=== PATIENT | female | born 1940 | race Caucasian/White ===

== ENCOUNTER 2021-07-27 10:28 | Observation (INO) | payer MEDICARE, OTHER, SELFPAY ==
[2021-07-26 10:06] VITALS: BMI 24.7
[2021-07-27] VITALS (15 sets, daily range): BP systolic 98–136; BP diastolic 56–84; PULSE 57–75; RESP 11–17; TEMP 36.1–36.6; O2SAT 90–97; BMI 24.7
--- NOTE | 2021-07-27 06:38 | P.ANESASSM_ITS ---
Pre-Anesthetic Assessment Height/Weight: Height 1.6 m Weight 63.503 kg Preop Diagnosis: uterine prolapse, cystocele Operation Date: 07/27/21 07:00 Proposed Procedures p LAV with BSO [id number]/n81.4(Not Applicable) - Christal Samuel MD s Laparoscopic Salpingo Oophorectomy(Bilateral) - MD malena Goel Anterior Repair(Not Applicable) - Christal Samuel MD s possible mid-urethral sling(Not Applicable) - Christal Samuel MD Familial anesthetic complications: None Was Beta Marlena taken within 24 hours: Yes Was Clonidine taken within 24 hours: N/A Last intake: > 8hrs Social No alcohol and No tobacco Exam alert, oriented x 3, clear to auscultation bilaterally and regular rate & rhythm Airway Mallampati: Class I Dentition: false CV/HEM Coronary Artery Disease (stent several years ago) and Hypertension GI Gastroesophageal Reflux Disease Musc/skel Lower Back Pain Anesthetic Plan ASA status: 2 Anesthesia: General Risk of > 500 ml blood loss (7ml/kg in children): No Medications/Allergies Home Medications Medication Instructions Recorded Confirmed Last Taken Type alprazolam 0.5 mg disintegrating 0.5 mg PO BEDTIME 07/02/21 07/27/21 07/26/21 History tablet brimonidine 0.2 % eye drops 1 drp OPHTHALMIC (EYE) BID 07/02/21 07/27/21 07/27/21 History calcium carbonate 600 mg calcium 600 mg PO BID 07/02/21 07/27/21 07/26/21 History (1,500 mg) tablet (Calcium) gemfibrozil 600 mg tablet 600 mg PO BID 07/02/21 07/27/21 07/26/21 History lisinopril 10 mg tablet 10 mg PO BEDTIME 07/02/21 07/27/21 07/26/21 History metoprolol succinate 50 mg 50 mg PO DAILY 07/02/21 07/27/21 07/27/21 History tablet,extended release 24 hr omeprazole 20 mg capsule,delayed 20 mg PO BID 07/02/21 07/27/21 07/26/21 History release fluticasone propionate 50 2 spray INTRANASAL DAILY PRN 07/21/21 07/27/21 07/24/21 History mcg/actuation nasal spray,suspension (Flonase Allergy Relief) Allergies Allergy/AdvReac Type Severity Reaction Status Date / Time No Known Allergies Allergy Verified 07/26/21 09:52 [facility] Anesthesia Medical History No pertinent past medical history neghx: dm, htn, thyroid, dvt/pe PCP: Janell Mendes Surgical History History of back surgery (~2001) with madyson History of heart artery stent Hx of breast biopsy L breast Hx of removal of cyst R wrist Family History (Updated 07/21/21 @ 15:05 by Amalia Young RN) Brother Heart disease Stroke Denies family history of Colon cancer Ovarian cancer Diabetes Hyperlipidemia Breast cancer Hypertension Uterine cancer Thyroid condition Data Anesthesia Cardiac Studies: No Data to Display
[2021-07-27] MEDS: CELEcoxib 200 mg Capsule 400 MG PO (06:41)
[2021-07-27] MEDS: phenazopyridine 100 mg Tablet 200 MG PO (06:41)
[2021-07-27] MEDS: scopolamine 1.5 Patch 1 PATCH TRANSDERMA (06:44)
[2021-07-27] MEDS: ketorolac 30 mg/mL INJ IVP ×3 (06:44→19:53)
[2021-07-27] MEDS: gabapentin 300 mg Capsule PO (06:44)
[2021-07-27] MEDS: sodium chloride 0.9% 1,000 ML 30 ML IV (06:45)
[2021-07-27] MEDS: acetaminophen 1,000 MG/100 ML PIGGYBACK 400 MG IV (06:46)
[2021-07-27 07:03] LABS: Basophils % 0.8 %; Eosinophils # 0.2 10^3/uL (0.0-0.8); Eosinophils % 3.6 %; Hematocrit 38.3 % (37.0-47.0); Hemoglobin 13.1 g/dL (11.5-15.3); Lymphocytes # 2.1 10^3/uL (0.8-4.8); Lymphocytes % 43.5 %; Mean Corpuscular HGB Conc 34.2 g/dL (30.0-36.0); Mean Corpuscular Hemoglobin 31.8 pg (28.0-34.0); Mean Platelet Volume 9.4 fL (7.4-10.4); Monocytes # 0.5 10^3/uL (0.2-0.9); Monocytes % 11.3 %; Neutrophils # 1.92 10^3/uL (1.8-7.7); Neutrophils % 40.8 %; Nucleated Red Blood Cells % 0 %; Platelet Count 310 10^3/cmm (130-400); Red Blood Count 4.12 10^6/uL (4.1-5.3); White Blood Count 4.7 10^3/uL (4.0-10.0)
--- NOTE | 2021-07-27 07:06 | W.PM.OPSUD ---
Surgery/Procedure H&P Update DATE OF PROCEDURE: July 27, 2021 DATE H&P PERFORMED: 07/21/21 H&P UPDATE INFORMATION: I have reviewed H&P completed within last 30 days, I have examined patient prior to procedure and No changes to prior documentation PREOP DIAGNOSIS: uterine prolapse, cystocele PLANNED PROCEDURE: Operation Date: 07/27/21 07:00 Proposed Procedures p LAVH with BSO [id number]/n81.4(Not Applicable) - Christal Samuel MD s Laparoscopic Salpingo Oophorectomy(Bilateral) - Christal Samuel MD s Anterior Repair(Not Applicable) - Christal Samuel MD s possible mid-urethral sling(Not Applicable) - Christal Samuel MD Related Problem List Diagnoses (1) Cystocele: (2) Uterine prolapse:
[2021-07-27 07:16] LABS: Anion Gap 15.4 (5-19); Blood Urea Nitrogen 17 mg/dL (8-23); Carbon Dioxide 24 mmol/L (22-29); Chloride 103 mmol/L (98-107); Glucose 114 mg/dL (65-115); Osmolality Calculated 288 mOsm/kg (285-295); Potassium 4.4 mmol/L (3.5-5.1); Sodium 138 mmol/L (136-145)
--- NOTE | 2021-07-27 08:03 | SUR.OPER ---
family updated of surgical status
[2021-07-27] MEDS: vasopressin 20 unit/mL INJ INJECTION (08:10)
--- NOTE | 2021-07-27 09:09 | SUR.OPER ---
family updated of surgical status
--- NOTE | 2021-07-27 10:14 | PM.OP ---
Operative Report Date of procedure: July 27, 2021 Pre-op diagnosis: Preop Diagnosis uterine prolapse, cystocele Post-op diagnosis: same Post-op findings: Grade 3 cystocele, small uterus. Normal appearing tubes and ovaries Procedure done: LAVH with BSO, anterior repair, cystoscopy Specimens removed/disposition: uterus, tubes and ovaries to pathology Surgeon: Christal Samuel Anesthesia: General Estimated blood loss (mL): 30 IV fluids (mL): 1,600 Urine output (mL): 400 Complications: none Condition: stable Disposition: PACU Procedure: The patient was taken to the operating room where general anesthesia was administered and found to be adequate. She was prepped and draped in the normal sterile fashion in the dorsal lithotomy position in [facility]. A Dawn catheter was placed. A weighted speculum was placed into the vagina and the anterior lip of the cervix was grasped with a single tooth tenaculum. The Zumi uterine manipulator was placed. The weighted speculum was removed. The gloves were changed and attention was turned to the abdomen. A 5 mm infraumbilical incision was made. Using a 5 mm port with the camera, the port was placed into the abdomen. The abdomen was insufflated. Two low, lateral 5 mm ports were placed on the left and right under direct visualization from the camera. The right tube was grasped and elevated. Using the laparoscopic cautery, the infundibulopelvic ligament was cauterized lateral to the tube and ovary. This was performed the same way on the left. The uteroovarian ligaments as well as the round ligaments were ligated. Attention was then turned to the vaginal portion of the procedure. The weighted speculum was placed into the vagina. The zumi manipulator was removed. The single tooth tenaculum was removed and replaced with the mark's tenaculum. 10 mL of dilute Pitressin was injected at the vesicovaginal junction. A circumferential incision was made at the vesicovaginal junction and the vaginal mucosa reflected cephalad. The posterior peritoneum was entered sharply with the Metzenbaum scissors and the long weighted speculum replaced. Using the Shoaib clamps the uterosacral ligaments were clamped cut and suture-ligated. The anterior peritoneum was entered sharply with the metzenbaum scissors. Then sequentially the uterine arteries and cardinal ligaments were clamped cut and suture-ligated. A single-tooth tenaculum was used to deliver the uterus. The remaining segement of the utero-ovarian ligaments were clamped cut and suture-ligated bilaterally and the specimen was removed. There was good hemostasis with only mild bleeding from the cuff. The peritoneum was closed with a pursestring using 2-0 Vicryl. The vaginal cuff was closed with 0 Vicryl in a running locked pattern incorporating the uterosacral ligaments into the lateral aspects of the vaginal cuff. The Dawn catheter was removed and the cystoscope advanced into the bladder. The patient was given pyridium and bilateral spill was noted. There were no injuries or deficits noted in the bladder. The cystoscope was removed and the Dawn was replaced. An allis clamp was placed in the midline of the vaginal mucosa, approximately 2 cm posterior to the urethra. A second allis clamp was placed in the midline of the vaginal mucosa, approximately 3 cm from the cuff. An incision was made in the midline from clamp to clamp. The vaginal mucosa was clamped laterally and the cystocle dissected off of the vesicovaginal fascia. The cystocele was packed away and the vesicovaginal fascia brought together in the midline with figure of 8 interrupted sutures of O-Vicryl. The packing was removed and the excess vaginal tissue trimmed. The incision was repaired with 0-Vicryl in a running fashion. The Dawn catheter was removed and the cystoscope advanced into the bladder. The bladder was filled. pressure was placed on the bladder and no incontinence noted. Vaginal packing was placed as well as the dawn catheter. The abdominal incisions were closed with 4-0 vicryl and skin glue. The patient tolerated the procedure well. Sponge lap and needle counts were correct x3. She was taken to the recovery room in stable condition.
[2021-07-27] MEDS: ondansetron 2 mg/ML SDV 2 mL 4 MG IVP (11:25)
[2021-07-27] MEDS: dextrose 5%-lactated ringers 1,000 ML 125 ML IV ×2 (12:56→21:18)
[2021-07-27] MEDS: docusate sodium 100 mg Capsule PO (17:56)
[2021-07-27] MEDS: gemfibrozil 600 mg Tablet PO (17:56)
[2021-07-27] MEDS: pantoprazole DR 40 mg Tablet PO (17:56)
--- NOTE | 2021-07-27 18:56 | ANE.PACU2 ---
Inpatient post-anesthesia follow up: Airway intact: Yes Vital signs: Temperature 97.5 F Pulse Rate 75 Respiratory Rate 17 Blood Pressure 136/77 Pulse Oximetry 95 Oxygen Delivery Me thod Room Air Oxygen Flow Rate 2 Fraction of Inspir ed Oxygen Hydration adequate: Yes Nausea and vomiting: No Pain level: 1 Mental status: Baseline
[2021-07-27 20:51] LABS: Adenovirus Not Detected (NOT DETECT); Chlamydia Pneumoniae Not Detected (NOT DETECT); Coronavirus 229E,HKU1,NL63,OC4 Not Detected (NOT DETECT); Human Metapneumovirus Not Detected (NOT DETECT); Human Rhinovirus/Enterovirus Not Detected (NOT DETECT); Influenza A Not Detected (NOT DETECT); Influenza A H1 Not Detected (NOT DETECT); Influenza A H1-2009 Not Detected (NOT DETECT); Influenza A H3 Not Detected (NOT DETECT); Influenza B Not Detected (NOT DETECT); Mycoplasma Pneumoniae Not Detected (NOT DETECT); Parainfluenza Virus Type 1 Not Detected (NOT DETECT); Parainfluenza Virus Type 2 Not Detected (NOT DETECT); Parainfluenza Virus Type 3 Not Detected (NOT DETECT); Parainfluenza Virus Type 4 Not Detected (NOT DETECT); Respiratory Syncytial Virus A Not Detected (NOT DETECT); Respiratory Syncytial Virus B Not Detected (NOT DETECT); SARS-COV-2 Not Detected (NOT DETECT)
[2021-07-27] MEDS: lisinopril 10 mg Tablet PO (21:18)
[2021-07-27] MEDS: ALPRAZolam 0.5 mg Tablet PO (21:18)
[2021-07-28] MEDS: ketorolac 30 mg/mL INJ IVP (01:46)
[2021-07-28 04:04] VITALS: BP 110/61; PULSE 62; RESP 14; O2SAT 93
[2021-07-28 05:19] LABS: Hematocrit 33.1 % (37.0-47.0); Hemoglobin 10.7 g/dL (11.5-15.3); Mean Corpuscular HGB Conc 32.3 g/dL (30.0-36.0); Mean Corpuscular Hemoglobin 31.1 pg (28.0-34.0); Mean Corpuscular Volume 96.2 fl (81-99); Mean Platelet Volume 9.7 fL (7.4-10.4); Platelet Count 259 10^3/cmm (130-400); Red Blood Count 3.44 10^6/uL (4.1-5.3); Red Cell Distribution Width 12.3 % (12.1-15.1); White Blood Count 11.4 10^3/uL (4.0-10.0)
[2021-07-28 08:17] VITALS: BP 122/65; PULSE 57; RESP 16; TEMP 36.3; O2SAT 95
[2021-07-28] MEDS: metoprolol succinate ER (24 HR) 50 mg Tablet PO (09:25)
[2021-07-28] MEDS: pantoprazole DR 40 mg Tablet PO (09:25)
[2021-07-28] MEDS: docusate sodium 100 mg Capsule PO (09:26)
[2021-07-28] MEDS: gemfibrozil 600 mg Tablet PO (09:26)
--- NOTE | 2021-07-28 10:20 | PM.DCS ---
Discharge Providers Date of Admission: 07/27/21 10:28 Date of Discharge: July 28, 2021 Attending Provider at Admission: Christal Samuel MD Attending Provider at Discharge: Christal Samuel MD Primary Care Provider: Amara Mendes APN Diagnoses at Discharge Discharge Diagnosis (1) Cystocele: Status: Acute (2) Uterine prolapse: Status: Acute Reason for Visit Reason for Visit: uterine prolapse Hospital Course Hospital Course The patient was admitted for surgery. she did well postoperatively and was ready for discharge on day #1 Physical Exam Narrative: The patient has no complaints today Const: COMMON NORMALS: no acute distress, average body habitus, patient oriented x3, no limitations, healthy appearing, alert and well nourished GENERAL APPEARANCE: cooperative, comfortable, well kempt and well developed ORIENTATION/CONSCIOUSNESS: Yes awake, Yes oriented to person, Yes oriented to place and Yes oriented to time Resp: COMMON NORMALS: normal respiratory effort EFFORT & INSPECTION: Yes able to speak in complete sentences Extremity: COMMON NORMALS: no calf tenderness Neuro: COMMON NORMALS: patient oriented x3 SENSORIUM/ORIENTATION: Yes alert, Yes oriented to person, Yes oriented to place and Yes oriented to time Psych: APPEARANCE: Yes well kempt Urinary Catheter Management: [place]: Cath Placed During This Visit: yes, but has since been removed by the nurse Reason for Continuing Indwelling Catheter: Decision to DC Catheter Urinary Catheter Date of Insertion: 07/27/21 Urinary Catheter Time of Insertion: 07:39 Date Urinary Catheter Removed: 07/28/21 Time Urinary Catheter Discontinued: 05:00 Discharge Data Studies Completed and Pending Pending at discharge Category Date Time Status ES surgery / GI images Routine Exams 07/27/21 06:46 Taken Retype for Patiets ABO/Rh Routine Lab 07/27/21 07:27 Ordered Urine Culture Routine Lab 07/27/21 07:41 Results Pathology: Surgical [PTH] Routine Pth 07/27/21 10:13 Received Laboratory Results WBC 11.4 10^3/uL (4.0-10.0) H 07/28/21 04:58 RBC 3.44 10^6/uL (4.1-5.3) L 07/28/21 04:58 Hgb 10.7 g/dL (11.5-15.3) L 07/28/21 04:58 Hct 33.1 % (37.0-47.0) L 07/28/21 04:58 MCV 96.2 fl (81-99) 07/28/21 04:58 MCH 31.1 pg (28.0-34.0) 07/28/21 04:58 MCHC 32.3 g/dL (30.0-36.0) D 07/28/21 04:58 RDW 12.3 % (12.1-15.1) 07/28/21 04:58 Plt Count 259 10^3/cmm (130-400) 07/28/21 04:58 MPV 9.7 fL (7.4-10.4) 07/28/21 04:58 Neut % (Auto) 40.8 % 07/27/21 06:41 Lymph % (Auto) 43.5 % 07/27/21 06:41 Cooper % (Auto) 11.3 % 07/27/21 06:41 Eos % (Auto) 3.6 % 07/27/21 06:41 Baso % (Auto) 0.8 % 07/27/21 06:41 Neut # (Auto) 1.92 10^3/uL (1.8-7.7) 07/27/21 06:41 Lymph # (Auto) 2.1 10^3/uL (0.8-4.8) 07/27/21 06:41 Cooper # (Auto) 0.5 10^3/uL (0.2-0.9) 07/27/21 06:41 Eos # (Auto) 0.2 10^3/uL (0.0-0.8) 07/27/21 06:41 Baso # (Auto) 0.0 10^3/uL (0.0-0.1) 07/27/21 06:41 Nucleated RBC % (auto) 0 % 07/27/21 06:41 Nucleated RBCs # 0.0 /100WBC 07/27/21 06:41 Sodium 138 mmol/L (136-145) 07/27/21 06:41 Potassium 4.4 mmol/L (3.5-5.1) 07/27/21 06:41 Chloride 103 mmol/L (98-107) 07/27/21 06:41 Carbon Dioxide 24 mmol/L (22-29) 07/27/21 06:41 Anion Gap 15.4 (5-19) 07/27/21 06:41 BUN 17 mg/dL (8-23) 07/27/21 06:41 Creatinine 0.6 mg/dL (0.5-0.9) 07/27/21 06:41 GFR Calculation Not Reportable 07/27/21 06:41 Glucose 114 mg/dL (65-115) 07/27/21 06:41 Calculated Osmolality 288 mOsm/kg (285-295) 07/27/21 06:41 Calcium 9.0 mg/dL (8.5-10.5) 07/27/21 06:41 Coronavirus 229E (PCR) Not detected (NOT DETECT) 07/27/21 18:37 SARS-CoV-2 (PCR) Not detected (NOT DETECT) 07/27/21 18:37 Blood Type O Positive 07/27/21 06:41 Rho(D) Type Positive 07/27/21 06:41 Antibody Screen Negative 07/27/21 06:41 Vitals Last Vital Signs Temp 97.3 F L 07/28/21 08:17 Pulse 57 L 07/28/21 08:17 Resp 16 07/28/21 08:17 BP 122/65 07/28/21 08:17 Pulse Ox 95 07/28/21 08:17 Discharge Plan Discharge Patient Disposition: Home Condition: Stable Prescriptions: New ibuprofen 800 mg Tablet 800 mg PO Q8H Qty: 20 0RF hydrocodone-acetaminophen 5-325 mg Tablet 1 tab PO Q6H PRN (Reason: Moderate To Severe Pain) Qty: 20 0RF docusate sodium 100 mg Capsule 100 mg PO BID Qty: 60 0RF Continued omeprazole 20 mg capsule,delayed release(DR/EC) 20 mg PO BID 0RF gemfibrozil 600 mg tablet 600 mg PO BID 0RF metoprolol succinate 50 mg tablet extended release 24 hr 50 mg PO DAILY 0RF lisinopril 10 mg tablet 10 mg PO BEDTIME 0RF alprazolam 0.5 mg tablet,disintegrating 0.5 mg PO BEDTIME 0RF brimonidine 0.2 % drops 1 drp ophthalmic (eye) BID 0RF calcium carbonate [Calcium 600] 600 mg calcium (1,500 mg) tablet 600 mg PO BID 0RF fluticasone propionate [Flonase Allergy Relief] 50 mcg/actuation spray,suspension 2 spray intranasal DAILY PRN (Reason: Allergic Symptoms) 0RF Rx Instructions: administer into each nostril Discharge Orders: Discharge Order (Routine); Ordered 07/28/21 Ordered By: Christal Samuel Referrals: Christal Samuel MD [Physician] - Patient Instructions: Cystocele (DC), Laparoscopic Hysterectomy (DC), Anterior Vaginal Repair (DC), OB Discharge Report, OB Laproscopic Surgery - [facility], Opioid Safety Discharge Attestations Time Spent in Discharge Care*: less than 30 min Quality Metrics Clinical Quality Measures [ No reported AMI, CVA or VTE this stay] Coding Level of Care Code Acute Chg FW DC note Diagnoses Cystocele Uterine prolapse N81.4
[2021-07-28 11:00] VITALS: BP 115/65; PULSE 65; RESP 16; TEMP 36.6; O2SAT 95
== END 2021-07-28 11:00 | disposition home or self-care (01) ==
LOC: OBGYN 10:29
PROVIDERS: Admitting Provider Obstetrics & Gynecology; PCP Nurse Practitioner; Visit Provider Obstetrics & Gynecology
PROC: 0UT9FZZ Resection of Uterus, Via Natural or Artificial Opening With Percutaneous Endoscopic Assistance (ICD-10-PCS; CPT 58552; principal; 2021-07-27 07:00)
PROC: (CPT 58661; 2021-07-27 07:00)
PROC: 0JQC0ZZ Repair Pelvic Region Subcutaneous Tissue and Fascia, Open Approach (ICD-10-PCS; CPT 57240; 2021-07-27 07:00)
PROC: (CPT 57288; 2021-07-27 07:00)
PROC: 0TJB8ZZ Inspection of Bladder, Via Natural or Artificial Opening Endoscopic (ICD-10-PCS; CPT 52000; 2021-07-27 07:00)
DX: N81.4 Uterovaginal prolapse, unspecified (principal); I25.10 Atherosclerotic heart disease of native coronary artery without angina pectoris; Z95.5 Presence of coronary angioplasty implant and graft; I10 Essential (primary) hypertension; K21.9 Gastro-esophageal reflux disease without esophagitis; Z82.49 Family history of ischemic heart disease and other diseases of the circulatory system; Z82.3 Family history of stroke
CPT/HCPCS: 58552; 36415; 80048; 85025; 85027; 86850; 86900; 87086; 87635; 88305; 94664; G0378; J0690; J1100; J1170; J1885; J1940; J2370; J2405; J2704; J2710; J3010; J3490; J7030

== ENCOUNTER 2022-08-31 15:15 | Observation (INO) | payer MEDICARE, OTHER, SELFPAY ==
[2022-08-30 08:59] VITALS: BMI 25.3
[2022-08-30 09:19] LABS: Basophils % 0.7 %; Eosinophils # 0.1 10^3/uL (0.0-0.8); Eosinophils % 3.3 %; Hematocrit 39.5 % (37.0-47.0); Hemoglobin 12.8 g/dL (11.5-15.3); Lymphocytes # 1.6 10^3/uL (0.8-4.8); Lymphocytes % 38.4 %; Mean Corpuscular HGB Conc 32.4 g/dL (30.0-36.0); Mean Corpuscular Hemoglobin 30.7 pg (28.0-34.0); Mean Corpuscular Volume 94.7 fl (81-99); Mean Platelet Volume 9.3 fL (7.4-10.4); Monocytes # 0.5 10^3/uL (0.2-0.9); Monocytes % 11.3 %; Neutrophils # 1.95 10^3/uL (1.8-7.7); Neutrophils % 46.1 %; Nucleated Red Blood Cells % 0 %; Platelet Count 318 10^3/cmm (130-400); Red Blood Count 4.17 10^6/uL (4.1-5.3); Red Cell Distribution Width 12.1 % (12.1-15.1); White Blood Count 4.2 10^3/uL (4.0-10.0)
--- NOTE | 2022-08-30 09:28 | ECG_ITS ---
[facility] Test Date: 2022-08-30 Pat Name: Rebecca Macedo Department: Room: Gender: Female Shaft Tender: : 1940 Requested By: Ashley Delgado Order Number: [id number] Litzy MD: Nida Castelan M.D. Measurements Intervals [place] Rate: 60 P: 14 ME: 198 QRS: -7 QRSD: 92 T: 120 QT: 402 QTc: 405 Interpretive Statements SINUS RHYTHM LEFT VENTRICULAR HYPERTROPHY AND ST-T CHANGE [VOLTAGE CRITERIA PLUS ST/T ABNORMALITY] POSSIBLE SEPTAL MYOCARDIAL INFARCTION , PROBABLY OLD [30 ms Q WAVE IN V1/V2] No previous ECG available for comparison Electronically Signed On 08-30-2022 16:52:47 CDT by Nida Castelan M.D. [id number]
[2022-08-30 09:34] LABS: Alanine Aminotransferase 15 U/L (0-33); Albumin Level 4.4 g/dL (3.5-5.2); Alkaline Phosphatase 85 U/L (35-105); Anion Gap 14.3 (5-19); Aspartate Amino Transferase 23 U/L (0-32); Blood Urea Nitrogen 15 mg/dL (8-23); Calcium 9.4 mg/dL (8.5-10.5); Carbon Dioxide 23 mmol/L (22-29); Chloride 105 mmol/L (98-107); Globulin 2.6 g/dL (1.3-4.6); Glucose 95 mg/dL (65-115); Osmolality Calculated 287 mOsm/kg (285-295); Potassium 4.3 mmol/L (3.5-5.1); Sodium 138 mmol/L (136-145); Total Bilirubin 0.3 mg/dL (0.15-1.2)
--- NOTE | 2022-08-30 09:40 | ANES.PREANE2 ---
Pre-Anesthetic Assessment Height/Weight: Height 1.6 m Weight 64.864 kg Operation Date: 08/31/22 11:45 Proposed Procedures p Anterior Repair(Not Applicable) - Chevy Miranda MD s Posterior Repair(Not Applicable) - Chevy Miranda MD s Sling Single Incision Midurethral Sling(Not Applicable) - Chevy Miranda MD s Sacrospinous Ligament Suspension(Not Applicable) - Chevy Miranda MD Familial anesthetic complications: None Social No alcohol and No tobacco Exam alert, oriented x 3, clear to auscultation bilaterally and regular rate & rhythm Airway Mallampati: Class I Dentition: false CV/HEM Coronary Artery Disease (stent) and Hypertension GI Gastroesophageal Reflux Disease Musc/skel Lower Back Pain Anesthetic Plan ASA status: 3 Anesthesia: General Risk of > 500 ml blood loss (7ml/kg in children): No Medications/Allergies Home Medications Medication Instructions Recorded Confirmed Last Taken Type alprazolam 0.5 mg disintegrating 0.5 mg PO BEDTIME 07/02/21 08/30/22 1 Day Ago History tablet ~08/29/22 brimonidine 0.2 % eye drops 1 drp ophthalmic (eye) BID 07/02/21 08/30/22 1 Day Ago History ~08/29/22 calcium carbonate 600 mg calcium 600 mg PO BID 07/02/21 08/30/22 1 Day Ago History (1,500 mg) tablet (Calcium) ~08/29/22 gemfibrozil 600 mg tablet 600 mg PO BID 07/02/21 08/30/22 1 Day Ago History ~08/29/22 metoprolol succinate 50 mg 50 mg PO DAILY 07/02/21 08/30/22 1 Day Ago History tablet,extended release 24 hr ~08/29/22 omeprazole 20 mg capsule,delayed 20 mg PO BID 07/02/21 08/30/22 1 Day Ago History release ~08/29/22 estradiol 0.01% (0.1 mg/gram) 1 appful vaginal DAILY #42.5 grams 03/16/22 08/30/22 1 Day Ago Rx vaginal cream (Estrace) ~08/29/22 Lactobacillus combo no.23 14 1 cell PO 08/30/22 1 Day Ago History billion cell capsule (Shamir ~08/29/22 Probiotic) Allergies Allergy/AdvReac Type Severity Reaction Status Date / Time No Known Allergies Allergy Verified 08/30/22 08:58 PFSH Anesthesia Medical History No pertinent past medical history neghx: dm, htn, thyroid, dvt/pe PCP: Janell Mendes Surgical History History of back surgery (~2001) with madyson History of heart artery stent Hx of breast biopsy L breast Hx of removal of cyst R wrist Family History Brother Heart disease Stroke Denies family history of Colon cancer Ovarian cancer Diabetes Hyperlipidemia Breast cancer Hypertension Uterine cancer Thyroid condition Data Anesthesia 08/30/22 09:00 08/30/22 09:00 Short CBC 08/30/22 Range/Units 09:00 WBC 4.2 (4.0-10.0) 10^3/uL Hgb 12.8 (11.5-15.3) g/dL Hct 39.5 (37.0-47.0) % MCV 94.7 (81-99) fl Plt Count 318 (130-400) 10^3/cmm Neut % (Auto) 46.1 % Neut # (Auto) 1.95 (1.8-7.7) 10^3/uL BMP 08/30/22 09:00 Sodium 138 Potassium 4.3 Chloride 105 Carbon Dioxide 23 BUN 15 Creatinine 0.6 Glucose 95 Calcium 9.4 Liver Function 08/30/22 Range/Units 09:00 Total Bilirubin 0.3 (0.15-1.2) mg/dL AST 23 (0-32) U/L ALT 15 (0-33) U/L Alkaline Phosphatase 85 (35-105) U/L Albumin 4.4 (3.5-5.2) g/dL Cardiac Studies: No Data to Display
[2022-08-30 09:55] LABS: Add Urine Microscopic? NO; Charge for UA Resulting for Rev
[2022-08-30 09:58] LABS: Bilirubin Urine Neg (Negative); Blood Urine Neg (Negative); Glucose Urine UA Norm (Normal); Ketones Urine Negative (Negative); Leukocyte Esterase Urine Negative (Negative); Nitrate Urine Negative (Negative); Protein Urine Neg (Negative); Urine Appearance Clear (CLEAR); Urine Color Light yellow (Yellow); Urobilinogen Urine Norm (Negative); pH Urine 6.5 (5-7)
[2022-08-31] VITALS (14 sets, daily range): BP systolic 119–155; BP diastolic 62–92; PULSE 52–78; RESP 12–18; TEMP 36.2–36.7; O2SAT 90–99
[2022-08-31] MEDS: sodium chloride 0.9% 1,000 ML 30 ML IV (10:34)
[2022-08-31] MEDS: sodium chloride 0.9% 500 ML IV (10:34)
[2022-08-31] MEDS: enoxaparin 30 mg/0.3 mL Syringe SUBCUT (10:34)
--- NOTE | 2022-08-31 10:56 | P.ANESUD_ITS ---
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 She was instructed to take these and she says she took them this morning, though she states she feels like her 'glaucoma is bothering her today. Shes never had an episode of acute angle glaucoma, but will avoid neostigmine/glycopyrolate in favor suggamadex Last Intake: Intake Last Liquid Date 08/30/22 Last Liquid Time 18:00 Last Solid Date 08/30/22 Last Solid Time 18:00 Labs Last 48hrs: Short CBC 08/30/22 Range/Units 09:00 WBC 4.2 (4.0-10.0) 10^3/ uL Hgb 12.8 (11.5-15.3) g/dL Hct 39.5 (37.0-47.0) % MCV 94.7 (81-99) fl Plt Count 318 (130-400) 10^3/c mm Neut % (Auto) 46.1 % Neut # (Auto) 1.95 (1.8-7.7) 10^3/u L BMP 08/30/22 09:00 Sodium 138 Potassium 4.3 Chloride 105 Carbon Dioxide 23 BUN 15 Creatinine 0.6 Glucose 95 Calcium 9.4 Liver Function 08/30/22 Range/Units 09:00 Total Bilirubin 0.3 (0.15-1.2) mg/dL AST 23 (0-32) U/L ALT 15 (0-33) U/L Alkaline Phosphata se 85 (35-105) U/L Albumin 4.4 (3.5-5.2) g/dL Urine 08/30/22 Range/Units 09:45 Urine Color Light yellow (Yellow) Urine Appearance Clear (CLEAR) Urine pH 6.5 (5-7) Ur Specific Gravit y 1.010 (1.005-1.030) Urine Protein Neg (Negative) Urine Glucose (UA) Norm (Normal) Urine Ketones Negative (Negative) Urine Nitrate Negative (Negative) Urine Bilirubin Neg (Negative) Ur Leukocyte Elena ase Negative (Negative) Blood Bank 08/30/22 09:00 Blood Type O Positive Rho(D) Type Positive Antibody Screen Negative Vitals: Temperature 97.8 F 08/31/22 10:17 Temperature Source Temporal Artery S can 08/31/22 10:17 Pulse Rate 56 L 08/31/22 10:17 Respiratory Rate 18 08/31/22 10:17 Blood Pressure 155/84 08/31/22 10:17 Blood Pressure Davida n 107 08/31/22 10:17 Pulse Oximetry 98 08/31/22 10:17 Oxygen Delivery Me thod Room Air 08/31/22 10:18 Exam: Pre-Anes Outpt Exam: alert, oriented x 3, clear to auscultation bilaterally and regular rate & rhythm Cardiac Studies: No Data to Display
--- NOTE | 2022-08-31 12:29 | W.PM.OPSUD ---
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
[2022-08-31] MEDS: ceFAZolin 2,000 MG in sodium chloride 0.9% (plus) 50 ML 100 MG IV (12:48)
[2022-08-31] MEDS: lidocaine-epi 2% 20 mL INJ 16 ML INJECTION (14:26)
[2022-08-31] MEDS: estrogens Conjugated Cream 30 gm 1 APPLIC VAGINAL (14:28)
--- NOTE | 2022-08-31 14:57 | P.OP_ITS ---
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 Single incision mid urethral sling. Posterior colporrhaphy. Cystoscopy Surgeon: Chevy Miranda MD Estimated blood loss (mL): 5 IV fluids (mL): 500 Urine output (mL): 200 Complications: none Procedure: After obtaining informed consent, the patient was taken to the operating room and placed in the supine position, given general anesthesia, and prepped and draped in sterile fashion. The abdomen, vulva and vagina were prepped and draped in a sterile manner. A time out procedure was performed. The anterior vaginal mucosa beneath the midurethra was infiltrated with 0.5% Marcaine with epinephrine. A vertical midline incision was made beneath the midurethra, nearly 1.5 cm length. Careful submucosal dissection was performed bilaterally up to the interior portion of the inferior pubic ramus. The insertion of adductor longus tendon on the patient?s pubic ramus was identified as reference land jeremy. Palpated the notch along the internal edge of ischiopubic ramus where the adductor longus tendon and the inferior pubic ramus meet. The Altis single incision sling (SIS) was selected. Then the needle of the SIS inserted aiming at the location of this notch. One of the integrated self-fixating tips place onto the needle by sliding it over the end of the needle. The needle/sling assembly was inserted toward the location of identified reference notch making sure that the flat of the handle is perpendicular to the desired path. The needle was tracked along the posterior surface of the ischiopubic ramus until the midline jeremy on the mesh is approximately at the midline position under the urethra. The needle was removed and the same was repeated on the contralateral side until the appropriate sling tension under the urethra was achieved ensuring that the mesh lays flat. The needle was removed and vaginal incision was closed in a running interlocking fashion with 2-0 Vicryl. Then the vaginal mucosa was then injected in the midline with normal saline. The vaginal mucosa was scored in the midline with the Bovie approximately 1 cm medial to the urethral meatus to 1 cm distal to the vaginal cuff. This vaginal mucosa was then undermined and then incised in the midline with the Metzenbaum scissors. The lateral aspects of the vaginal mucosa were then grasped with the Allis clamps and the vaginal mucosa was then dissected off the underlying fascia with the Metzenbaum scissors. Again, there was noted to be quite a bit of oozing at the incision, which was controlled with cautery. After adequate dissection was performed, bilaterally. The Coloplast allograft was modified at time of application to fit spacea, 3x3 cm piece. The Coloplast allograft was placed in front of cystocele ready to be implanted facing the vagina mucosa. Suture is placed at distal end of graft and placed towards vaginal cuff. Final suture is placed on proximal portion of the graft to complete the placement overlying the bladder. Then Interrupted vertical mattress sutures of 0 Vicryl were used to elevate the cystocele superiorly. The excessive vaginal mucosa was then trimmed with the Metzenbaum scissors and the vaginal mucosa was then reapproximated in the running interlocking fashion with 2-0 Vicryl. A posterior repair was performed next. An incision was made across the introitus. Metzenbaum scissors were used to tunnel beneath posterior vaginal mucosa until the apex of the rectocele bulge was reached. At this point, the rectum was from the posterior vaginal mucosa using sharp and blunt dissection, and the rectal bulge imbricated in the midline with interrupted sutures of 2-0 vicryl suture. Levator ani muscles on either side were approximated in the midline with interrupted 0 Vicryl sutures. Excess posterior vaginal mucosa was excised, and the vaginal episiotomy was repaired by approximating the posterior vaginal mucosa with a suture of Vicryl 2-O. Then the Llanes catheter was removed and cystoscope was inserted. The bladder was filled with sterile water. Complete evaluation of the bladder mucosa was performed not ing no lacerations, dimpling, tears, bleeding of the mucosa or muscular layers. Both ureteral orifices were identified. Prompt excretion of urine from both ureteral orifices was noted. Cystoscope was withdrawn. The Llanes catheter was replaced. Excellent hemostasis was obtained. A vaginal pack is placed overnight as postoperative support for the vaginal tissues after graft placement and closure of vaginal incisions. Sponge, lap, needle, and instrument counts were correct times three. The patient was taken to the recovery room, awake and in stable condition.
[2022-08-31] MEDS: ketorolac 30 mg/mL INJ IVP ×2 (15:53→21:29)
[2022-08-31] MEDS: dextrose 5%-lactated ringers 1,000 ML 125 ML IV ×2 (15:53→23:30)
--- NOTE | 2022-08-31 17:05 | ANE.PACU2 ---
Inpatient post-anesthesia follow up: Airway intact: Yes Vital signs: Temperature 98.3 F Pulse Rate 60 Respiratory Rate 17 Blood Pressure 130/78 Pulse Oximetry 97 Oxygen Delivery Me thod Room Air Oxygen Flow Rate 3 Fraction of Inspir ed Oxygen Hydration adequate: Yes Nausea and vomiting: Yes Pain level: 1 Mental status: Baseline
[2022-08-31] MEDS: docusate sodium 100 mg Capsule PO (17:57)
[2022-08-31] MEDS: gemfibrozil 600 mg Tablet PO (18:49)
[2022-08-31] MEDS: HYDROcodone-acetaminophen 5-325 mg Tablet PO (22:27)
[2022-09-01 04:00] VITALS: BP 128/69; PULSE 55; RESP 18; TEMP 36.6; O2SAT 97
[2022-09-01] MEDS: ketorolac 30 mg/mL INJ IVP (04:46)
[2022-09-01 05:52] LABS: Hematocrit 32.6 % (37.0-47.0); Hemoglobin 10.6 g/dL (11.5-15.3); Mean Corpuscular HGB Conc 32.5 g/dL (30.0-36.0); Mean Corpuscular Hemoglobin 30.9 pg (28.0-34.0); Mean Platelet Volume 9.5 fL (7.4-10.4); Platelet Count 266 10^3/cmm (130-400); Red Blood Count 3.43 10^6/uL (4.1-5.3); Red Cell Distribution Width 12.1 % (12.1-15.1); White Blood Count 11.4 10^3/uL (4.0-10.0)
--- NOTE | 2022-09-01 09:17 | PM.OBGYDC ---
Discharge Providers GRAPHIC ART DESIGNER Date of Admission: 08/31/22 15:15 Date of Discharge: 09/01/22 Attending Provider at Admission: Chevy Miranda MD Attending Provider at Discharge: Chevy Miranda MD Primary GRAPHIC ART DESIGNER: Chevy Miranda MD Primary Care Provider: Ty Moran MD Reason for Visit Reason for Visit: N81.9. N81.10 Brief History: Ms. Macedo is a 82 year old established patient who had a hysterectomy with cystocele and rectocele vaginal prolapse stage III. Hospital Course Hospital Course Ms. Macedo is a 82 year old admitted for planned anterior colporrhaphy augmented with allograft, single incision mid urethral sling, and posterior colporrhaphy. The procedures were performed without complication. Overnight observation uneventful. She is afebrile and hemodynamically stable postoperative day 1. Tolerating diet well. Ambulating without difficulty. She was counseled regarding pelvic rest for 6 weeks (no sex, no tampons, no vaginal douches). Return to the emergency room if any fever, increased bleeding or pain. Physical Exam Narrative: GA: Alert and oriented ?3. HEENT: WNL. Heart: Regular rate and rhythm. Lungs: Clear to auscultation bilaterally. Abdomen: Bowel sounds present, nontender. ENVIRONMENTAL SERVICES TECHNICIAN: light bleeding. Extremities: No edema, no cyanosis, no calves pain. Urinary Catheter Management: Llanes: Cath Placed During This Visit: yes, but has since been removed by the nurse Reason for Continuing Indwelling Catheter: Decision to DC Catheter Urinary Catheter Date of Insertion: 08/31/22 Urinary Catheter Time of Insertion: 13:20 Date Urinary Catheter Removed: 09/01/22 Time Urinary Catheter Discontinued: 06:06 History History History 3 Term 3 0 Miscarriages/Ectopic 0 Living Children 3 Discharge Data Studies Completed and Pending Laboratory Results WBC 11.4 10^3/uL (4.0-10.0) H 09/01/22 05:38 RBC 3.43 10^6/uL (4.1-5.3) L 09/01/22 05:38 Hgb 10.6 g/dL (11.5-15.3) L 09/01/22 05:38 Hct 32.6 % (37.0-47.0) L 09/01/22 05:38 MCV 95.0 fl (81-99) 09/01/22 05:38 MCH 30.9 pg (28.0-34.0) 09/01/22 05:38 MCHC 32.5 g/dL (30.0-36.0) 09/01/22 05:38 RDW 12.1 % (12.1-15.1) 09/01/22 05:38 Plt Count 266 10^3/cmm (130-400) 09/01/22 05:38 MPV 9.5 fL (7.4-10.4) 09/01/22 05:38 Neut % (Auto) 46.1 % 08/30/22 09:00 Lymph % (Auto) 38.4 % 08/30/22 09:00 [place] % (Auto) 11.3 % 08/30/22 09:00 Eos % (Auto) 3.3 % 08/30/22 09:00 Baso % (Auto) 0.7 % 08/30/22 09:00 Neut # (Auto) 1.95 10^3/uL (1.8-7.7) 08/30/22 09:00 Lymph # (Auto) 1.6 10^3/uL (0.8-4.8) 08/30/22 09:00 [place] # (Auto) 0.5 10^3/uL (0.2-0.9) 08/30/22 09:00 Eos # (Auto) 0.1 10^3/uL (0.0-0.8) 08/30/22 09:00 Baso # (Auto) 0.0 10^3/uL (0.0-0.1) 08/30/22 09:00 Nucleated RBC % (auto) 0 % 08/30/22 09:00 Nucleated RBCs # 0.0 /100WBC 08/30/22 09:00 Sodium 138 mmol/L (136-145) 08/30/22 09:00 Potassium 4.3 mmol/L (3.5-5.1) 08/30/22 09:00 Chloride 105 mmol/L (98-107) 08/30/22 09:00 Carbon Dioxide 23 mmol/L (22-29) 08/30/22 09:00 Anion Gap 14.3 (5-19) 08/30/22 09:00 BUN 15 mg/dL (8-23) 08/30/22 09:00 Creatinine 0.6 mg/dL (0.5-0.9) 08/30/22 09:00 GFR Calculation Not Reportable 08/30/22 09:00 Glucose 95 mg/dL (65-115) 08/30/22 09:00 Calculated Osmolality 287 mOsm/kg (285-295) 08/30/22 09:00 Calcium 9.4 mg/dL (8.5-10.5) 08/30/22 09:00 Total Bilirubin 0.3 mg/dL (0.15-1.2) 08/30/22 09:00 AST 23 U/L (0-32) 08/30/22 09:00 ALT 15 U/L (0-33) 08/30/22 09:00 Alkaline Phosphatase 85 U/L (35-105) 08/30/22 09:00 Total Protein 7.0 g/dL (6.6-8.7) 08/30/22 09:00 Albumin 4.4 g/dL (3.5-5.2) 08/30/22 09:00 Globulin 2.6 g/dL (1.3-4.6) 08/30/22 09:00 Urine Color Light yellow (Yellow) 08/30/22 09:45 Urine Appearance Clear (CLEAR) 08/30/22 09:45 Urine pH 6.5 (5-7) 08/30/22 09:45 Ur Specific [place] 1.010 (1.005-1.030) 08/30/22 09:45 Urine Protein Neg (Negative) 08/30/22 09:45 Urine Glucose (UA) Norm (Normal) 08/30/22 09:45 Urine Ketones Negative (Negative) 08/30/22 09:45 Urine Blood Neg (Negative) 08/30/22 09:45 Urine Nitrate Negative (Negative) 08/30/22 09:45 Urine Bilirubin Neg (Negative) 08/30/22 09:45 Urine Urobilinogen Norm mg/dL (Negative) 08/30/22 09:45 Ur Leukocyte Esterase Negative (Negative) 08/30/22 09:45 Blood Type O Positive 08/30/22 09:00 Rho(D) Type Positive 08/30/22 09:00 Antibody Screen Negative 08/30/22 09:00 Vitals Last Vital Signs Temp 97.9 F 09/01/22 04:00 Pulse 55 L 09/01/22 04:00 Resp 18 09/01/22 04:00 BP 128/69 09/01/22 04:00 Pulse Ox 97 09/01/22 04:00 O2 Del Method Room Air 09/01/22 04:00 O2 Flow Rate 3 08/31/22 15:29 Discharge Plan Discharge Patient Disposition: Home Condition: Stable Prescriptions: New hydrocodone-acetaminophen 5-325 mg tablet 1 tab PO Q4H PRN (Reason: pain) Qty: 10 0RF acetaminophen 325 mg capsule 325 mg PO Q4H PRN (Reason: fever or pain) Qty: 60 0RF docusate sodium [Colace] 100 mg capsule 100 mg PO BID Qty: 60 0RF ibuprofen 800 mg tablet 800 mg PO TID PRN (Reason: pain) Qty: 60 0RF Continued omeprazole 20 mg capsule,delayed release(DR/EC) 20 mg PO BID gemfibrozil 600 mg tablet 600 mg PO BID metoprolol succinate 50 mg tablet extended release 24 hr 50 mg PO DAILY alprazolam 0.5 mg tablet,disintegrating 0.5 mg PO BEDTIME brimonidine 0.2 % drops 1 drp ophthalmic (eye) BID calcium carbonate [Calcium 600] 600 mg calcium (1,500 mg) tablet 600 mg PO BID estradiol [Estrace] 0.01 % (0.1 mg/gram) cream 1 appful vaginal DAILY Qty: 42.5 2RF Rx Instructions: for 14 days Shamir Probiotic 14 billion cell Capsule 1 cell PO Rx Instructions: 1 tab daily Discharge Orders: Discharge Order (Routine); Ordered 09/01/22 Ordered By: Chevy Miranda Referrals: Chevy Miranda MD [Physician] - (Your follow up appointment is 09/12/2022 @ 1:45 p.m. with ) Discharge Diet: Usual diet Discharge Activity: Limit activity as instructed Patient Instructions: Hydrocodone/Acetaminophen (By mouth), Bladder Sling for Women (GEN), Anterior Vaginal Repair (GEN), Posterior Vaginal Repair (GEN), Opioid Safety Activity Restrictions/Additional Instructions: 1. Please call [facility] on next working day to make your post-operative appointment in 2 weeks. 2. Please stay home until you come back to the clinic on first post-hospatilization check up. 3. Please follow instructions on your medications CAREFULLY. 4. If you have abdominal incision, do not cover it unless dressing is necessary because of drainage. OK to shower, but avoid bath. Leave steri-strips until they fall off. If they are still on one week after surgery, you may remove them. 5. If you had vaginal surgery or vaginal repair, Dr. Miranda may instruct you to take SITZ bath but avoid baths, preferable to take showers. 6. Yellow, blood tinged odorous vaginal discharge is usually normal after hysterectomy or vaginal surgeries. 7. No SEXUAL INTERCOURSE, tampons, or douches until you are completely released from the post-operative care. 8. Avoid constipation by eating right and maybe using some Metamucil or Milk of Magnesia. 9. All prescription refills are given during the working hours. Please do no wait till it runs out. Call the clinic at [phone] before your medication runs out. The clinic will get in touch with your doctor to prescribe medications if necessary. 10. Please remain within 40 mile radius from our hospital because emergencies do happen now and then during the post-operative period. 11. If you have stairs at home, take one step at a time slowly and minimize the number of trips. It helps to stay in one floor for the next few days. No lifting except what you can lift by one hand until you are released from the post-operative care. 12. Driving is discouraged until you are well healed. It may be 3-4 weeks before you feel strong enough to drive. You should be able to turn and look through the rear window without pain and you should be able to push the brake pedal very hard without pain before you drive. No fast rules, but SAFETY should be your primary concern. DO NOT drive if you are on sedating medications such as narcotics. 13. Call the clinic (during working hours) to make urgent appointment or go to the Emergency room, if any of the following occurs: i. Vaginal bleeding becomes heavy, more than a period. ii. Incision becomes red and sore, or drains pus. iii. Your TEMPERATURE is over 100.4F or you have chill. iv. IV site becomes red and swollen (a little ``knot?? is usually OK) v. Persistent nausea and vomiting vi. Persistent constipation or diarrhea vii. Rash or allergic reaction to medications. Discharge Attestations GRAPHIC ART DESIGNER Time Spent in Discharge Care*: greater than 30 min Coding Level of Care Code Acute Code for Chg Fwd Diagnoses
[2022-09-01] MEDS: gemfibrozil 600 mg Tablet PO (09:41)
[2022-09-01] MEDS: docusate sodium 100 mg Capsule PO (09:41)
[2022-09-01] MEDS: pantoprazole DR 40 mg Tablet PO (09:42)
[2022-09-01] MEDS: estrogens Conjugated Cream 30 gm 30 APPLIC (09:44)
[2022-09-01] MEDS: metoprolol succinate ER (24 HR) 50 mg Tablet PO (09:47)
[2022-09-01 10:05] VITALS: BP 130/78; PULSE 60; RESP 17; TEMP 36.8; O2SAT 97
[2022-09-01 10:20] VITALS: BP 130/78; PULSE 60; RESP 17; TEMP 36.8; O2SAT 97
== END 2022-09-01 10:26 | disposition home or self-care (01) ==
LOC: OBGYN 15:17
PROVIDERS: Admitting Provider Obstetrics & Gynecology; PCP Internal Medicine Gastroenterology; Visit Provider Obstetrics & Gynecology
PROC: 0JQC0ZZ Repair Pelvic Region Subcutaneous Tissue and Fascia, Open Approach (ICD-10-PCS; CPT 57240; principal; 2022-08-31 11:35)
PROC: (CPT 57250; 2022-08-31 11:35)
PROC: (CPT 57288; 2022-08-31 11:35)
DX: N81.10 Cystocele, unspecified (principal); I25.10 Atherosclerotic heart disease of native coronary artery without angina pectoris; I10 Essential (primary) hypertension; K21.9 Gastro-esophageal reflux disease without esophagitis
CPT/HCPCS: 57260; 57267; 57288; 36415; 36592; 51798; 80053; 81003; 85025; 85027; 86850; 86900; 93005; C1713; C1762; G0378; J0690; J1100; J1200; J1650; J1885; J2405; J2704; J2710; J3010; J3490; J7030; J7040; J7121

== ENCOUNTER 2023-03-03 12:45 | Outpatient (CLI) | payer MEDICARE, OTHER, SELFPAY ==
--- NOTE | 2023-03-03 12:50 | XR_ITS ---
WS: [id number] DEXA (DUAL ENERGY X-RAY ABSORPTIOMETRY) Bone mineral density was performed using a [facility] machine. HISTORY: ASYMPTOMATIC MENOPAUSAL STATE COMPARISON: None available. LEFT forearm BMD: 0.508 g/cm2. T score: -4.2 Z score: -1.2 Total hip BMD: Left: 0.757 g/cm2. T score: -2.0 Z score: 0.2 Right: 0.743 g/cm2. T score: -2.1 Z score: 0.1 10 year probability of a major osteoporotic fracture is 24.0%. IMPRESSION: OSTEOPOROSIS based upon the WHO classification for females.
--- NOTE | 2023-03-03 13:09 | MM_ITS ---
WS: [id number] BILATERAL 3D TOMOSYNTHESIS DIGITAL SCREENING MAMMOGRAPHY WITH CAD CLINICAL INFORMATION: SCREENING HISTORY: Screening mammogram. LEFT axillary soreness COMPARISON: 2013 TECHNIQUE: Bilateral CC and MLO views. FINDINGS: Scattered nodular fibroglandular densities bilaterally. Incidental punctate and lucent centered calci fications. Punctate loosely clustered calcifications upper outer RIGHT breast posterior depth new com pared to previous. Recommend spot magnification views. LEFT breast is unremarkable. IMPRESSION: MM/[place] [id number] BI-RADS: 0-Incomplete: Need additional imaging evaluation FOLLOW UP: Need Additional Imaging Recommend spot modification views of the new RIGHT breast calcifications
== END 2023-03-03 12:46 | disposition home or self-care (01) ==
PROVIDERS: PCP Family Medicine; Visit Provider Nurse Practitioner Family
DX: Z78.0 Asymptomatic menopausal state (principal); Z12.31 Encounter for screening mammogram for malignant neoplasm of breast; M81.0 Age-related osteoporosis without current pathological fracture
CPT/HCPCS: 77063; 77067; 77080

== ENCOUNTER 2023-03-30 10:04 | Outpatient (CLI) | payer MEDICARE, OTHER, SELFPAY ==
--- NOTE | 2023-03-30 10:23 | MM_ITS ---
WS: [id number] RIGHT 3D TOMOSYNTHESIS DIGITAL MAMMOGRAPHY WITH CAD CLINICAL INFORMATION: OTHER ABNORMAL INCONCLUSIVE FINDINGS HISTORY: Additional views COMPARISON: 03/03/2023 TECHNIQUE: 3 views of the right breast were obtained. FINDINGS: Scattered fibroglandular densities of the right breast. Punctate and lucent centered calcifications. Again seen are the loosely clustered punctate calcifications upper outer RIGHT breast posterior depth . These have an amorphous appearance on the spot magnification views. Recommend 6-month follow-up to evaluate change. IMPRESSION: MM/[place] [id number] BI-RADS: 3-Probably Benign FOLLOW UP: 6 Month Follow-up Recommend 6-month follow-up RIGHT breast diagnostic mammography with spot modif ication views of the calcifications.
--- NOTE | 2023-03-30 10:26 | XR_ITS ---
WS: [id number] Lumbar spine, 3 views, 03/30/2023 Clinical Data: LOW BACK PAIN Comparison: Lumbar spine, 11/13/2015 Findings: There is a posterior lumbosacral fusion from L4-L5 with bilateral pedicle screws and connecting rods. There is a laminectomy at L5. There is disc narrowing at L4-L5 and L5-S1 1. There is anterior sublux ation of L5 on S1 unchanged. The transverse processes and SI joints remain the same. Impression: Stable posterior lumbosacral fusion.
== END 2023-03-30 10:05 | disposition home or self-care (01) ==
PROVIDERS: PCP Family Medicine; Visit Provider Nurse Practitioner Family
DX: R92.8 Other abnormal and inconclusive findings on diagnostic imaging of breast (principal); M54.50 Low back pain, unspecified; Z98.1 Arthrodesis status
CPT/HCPCS: 72100; 77061; G0279

== ENCOUNTER → 2023-10-20 10:03 | Outpatient (BNVA) | payer MEDICARE, OTHER, SELFPAY | PROVIDERS: PCP Family Medicine; Visit Provider Surgery | DX: R11.0 Nausea; K21.9 Gastro-esophageal reflux disease without esophagitis; K92.1 Melena; R15.9 Full incontinence of feces; R10.30 Lower abdominal pain, unspecified | CPT/HCPCS: 99204 ==

== ENCOUNTER 2023-11-09 12:45 | Outpatient (CLI) | payer MEDICARE, OTHER, SELFPAY ==
--- NOTE | 2023-11-09 12:50 | MM_ITS ---
WS: [id number] RIGHT 3D TOMOSYNTHESIS DIGITAL MAMMOGRAPHY WITH CAD CLINICAL INFORMATION: ABNORMAL INCONCLUSIVE FINDINGS HISTORY: Calcification follow-up 6 months COMPARISON: 03/30/2023 TECHNIQUE: 3 views of the right breast were obtained. FINDINGS: Scattered fibroglandular densities of the right breast. Again seen are the loosely clustered punctate calcifications upper outer RIGHT breast posterior depth. Some of these may be vascular and unchanged in appearance compared to previous. Recommend additional 6-month follow-up to evaluate stability. MM/[place] [id number] IMPRESSION: BI-RADS: 3-Probably Benign FOLLOW UP: 6 Month Follow-up Recommend 6-month follow-up RIGHT breast diagnostic mammography with spot magni fication views of the calcifications.
== END 2023-11-09 12:46 | disposition home or self-care (01) ==
LOC: RAD 12:45
PROVIDERS: PCP Family Medicine; Visit Provider Nurse Practitioner Family
DX: Z12.31 Encounter for screening mammogram for malignant neoplasm of breast (principal); R92.8 Other abnormal and inconclusive findings on diagnostic imaging of breast
CPT/HCPCS: 77061; G0279

== ENCOUNTER 2023-11-17 08:35 | Outpatient (CLI) | payer MEDICARE, OTHER, SELFPAY ==
--- NOTE | 2023-11-17 08:45 | US_ITS ---
WS: [id number] RIGHT UPPER QUADRANT ULTRASOUND HISTORY: Abdominal pain/Nausea COMPARISON: 01/12/2007 Liver: 15.0 cm in length. Normal size liver and echogenicity. No bile duct dilatation or mass. Portal Vein: Normal hepatopetal flow with monophasic waveform. Gallbladder: Normally distended gallbladder with no stones or wall thickening. CBD: 0.4 cm Pancreas: Normal size and echogenicity. Right kidney: 9.8 cm in length. Normal size and echogenicity. No hydronephrosis or mass. Aorta and IVC: Unremarkable abdominal aorta and IVC. No ascites. US/US gall bladder [id number] IMPRESSION: Normal right upper quadrant ultrasound.
== END 2023-11-17 08:36 | disposition home or self-care (01) ==
LOC: RAD 08:35
PROVIDERS: PCP Family Medicine; Visit Provider Surgery
DX: R10.11 Right upper quadrant pain (principal); R11.0 Nausea
CPT/HCPCS: 36415; 76705; 86003; 86008

== ENCOUNTER → 2023-11-20 11:03 | Outpatient (BNVA) | payer MEDICARE, OTHER, SELFPAY | PROVIDERS: PCP Family Medicine; Visit Provider Nurse Practitioner | DX: M25.552 Pain in left hip (principal); M54.32 Sciatica, left side; M54.50 Low back pain, unspecified | CPT/HCPCS: 73523; 99204 ==

== ENCOUNTER → 2023-11-22 10:28 | Outpatient (BNVA) | payer MEDICARE, OTHER, SELFPAY | PROVIDERS: PCP Family Medicine; Visit Provider Obstetrics & Gynecology | DX: Z90.710 Acquired absence of both cervix and uterus (principal); Z90.722 Acquired absence of ovaries, bilateral; R10.2 Pelvic and perineal pain; G89.29 Other chronic pain | CPT/HCPCS: 76830; 76856 ==

== ENCOUNTER 2023-12-13 11:05 | Day surgery (SDC) | payer MEDICARE, OTHER, SELFPAY ==
[2023-12-13 11:39] VITALS: BP 153/89; PULSE 118; RESP 18; TEMP 36.4; O2SAT 90; BMI 24.7
[2023-12-13] MEDS: sodium chloride 0.9% 1,000 ML 30 ML IV (11:54)
[2023-12-13 11:56] VITALS: BP 157/84; PULSE 64; RESP 18; O2SAT 96
--- NOTE | 2023-12-13 12:36 | P.HP_ITS ---
Providers/Chief Complaint Primary Care Provider: Hannah Poon NP Chief Complaint: R10.9, K21.9 History of Present Illness Rebecca Macedo is a 83 year old female Review of Systems General: Reports: 10 or more systems reviewed and unremarkable except in HPI and below Medications/Allergies Home Medications Medication Instructions Recorded Confirmed Last Taken Type alprazolam 0.5 mg disintegrating 0.5 mg PO BEDTIME 07/02/21 12/11/23 2 Weeks Ago History tablet ~11/27/23 brimonidine 0.2 % eye drops 1 drp ophthalmic (eye) BID 07/02/21 12/13/23 12/13/23 History calcium carbonate (Calcium 600) 600 mg PO BID 07/02/21 12/13/23 12/11/23 History gemfibrozil 600 mg tablet 600 mg PO BID 07/02/21 12/11/23 12/11/23 History metoprolol succinate 50 mg 50 mg PO DAILY 07/02/21 12/13/23 12/13/23 History tablet,extended release 24 hr omeprazole 20 mg capsule,delayed 20 mg PO BID 07/02/21 12/13/23 12/12/23 History release Lactobacillus combo no.23 14 1 cell PO DAILY 08/30/22 12/11/23 12/11/23 History billion cell capsule (Shamir Probiotic) hydrocortisone 1 % topical cream 1 applic topical TID PRN 10/11/22 12/13/23 12/12/23 Rx (Preparation H Hydrocortisone) hemorrhoids #28.35 grams amlodipine 2.5 mg tablet 2.5 mg PO DAILY 12/11/23 12/13/23 12/13/23 History aspirin 81 mg chewable tablet 81 mg PO DAILY 12/13/23 12/13/23 12/11/23 History Allergies Allergy/AdvReac Type Severity Reaction Status Date / Time No Known Allergies Allergy Verified 12/11/23 09:51 PFSH Acute PFSH: Medical History (Updated 12/10/23 @ 20:05 by Chevy Miranda MD) Back pain with left-sided sciatica Lumbar spine painful on movement Vaginal vault prolapse after hysterectomy No pertinent past medical history neghx: dm, htn, thyroid, dvt/pe PCP: Janell Mendes Surgical History H/O of anterior colporrhaphy (~08/31/22) Anterior colporrhaphy augmented with allograft, single incision mid urethral sling, posterior colporrhaphy, cystoscopy performed by Dr. Miranda at [facility] for stage III vaginal vault prolapse. History of hysterectomy (~07/27/21) LAVH, BSO, anterior repair, cystoscopy performed for uterine prolapse and cystocele by Dr. Samuel at [facility] Hx of removal of cyst R wrist Hx of breast biopsy L breast History of back surgery (~2001) with madyson History of heart artery stent Family History Brother Heart disease Stroke Denies family history of Colon cancer Ovarian cancer Diabetes Hyperlipidemia Breast cancer Hypertension Uterine cancer Thyroid disease Social History Smoking and tobacco/nicotine status: never used tobacco/nicotine Vitals/I&O/Wt Last Vital Signs Temp 97.6 F 12/13/23 11:39 Pulse 64 12/13/23 11:56 Resp 18 12/13/23 11:56 BP 157/84 12/13/23 11:56 Pulse Ox 96 12/13/23 11:56 O2 Del Method Room Air 12/13/23 11:56 Weight last 48 hrs Weight 140 lb A&P Assessment and plan (1) Abdominal pain: (2) GERD (gastroesophageal reflux disease): (3) Diarrhea: (4) Hematochezia: (5) Stool incontinence: (6) Nausea: Plan EGD and colonoscopy Attestations Medical Necessity Statement*: Home Coding Level of Care Code Acute Code for Chg Fwd Diagnoses Abdominal pain R10.9 GERD (gastroesophageal reflux disease) K21.9 Diarrhea R19.7 Hematochezia K92.1 Stool incontinence R15.9 Nausea R11.0
--- NOTE | 2023-12-13 12:52 | ANES.PREANE2 ---
Pre-Anesthetic Assessment Height/Weight: Height 5 ft 3 in Weight 140 lb Temp Pulse Resp BP Pulse Ox O2 Del Method 97.6 F 64 18 157/84 96 Room Air 12/13/23 11:39 12/13/23 11:56 12/13/23 11:56 12/13/23 11:56 12/13/23 11:56 12/13/23 11:56 Preop Diagnosis: GI screening Operation Date: 12/13/23 12:00 Proposed Procedures p EGD - 15922, 91214 , G0105 , R10.9 , K21.9(Not Applicable) - Marcos Granger DO s Colonoscopy(Not Applicable) - Marcos Granger DO Was Beta Marlena taken within 24 hours: Yes Was Clonidine taken within 24 hours: N/A Last intake: Intake Last Liquid Date 12/12/23 Last Liquid Time 20:00 Last Solid Date 12/11/23 Last Solid Time 18:00 Social No alcohol and No tobacco Exam alert, oriented x 3, clear to auscultation bilaterally and regular rate & rhythm Airway Submandibular: within normal limits Cervical ROM: within normal limits Mallampati: Class II Dentition: full Anesthetic Plan ASA status: 2 Anesthesia: MAC Other: No prior issues with anesthesia NPO since yesterday Completed bowel prep History of GERD, on medication but still not quite controlled Patient states that she feels slightly short of breath but does not use any O2 at home Labs from September reviewed [facility] for MAC anesthetic Medications/Allergies Home Medications Medication Instructions Recorded Confirmed Last Taken Type alprazolam 0.5 mg disintegrating 0.5 mg PO BEDTIME 07/02/21 12/11/23 2 Weeks Ago History tablet ~11/27/23 brimonidine 0.2 % eye drops 1 drp ophthalmic (eye) BID 07/02/21 12/13/23 12/13/23 History calcium carbonate (Calcium 600) 600 mg PO BID 07/02/21 12/13/23 12/11/23 History gemfibrozil 600 mg tablet 600 mg PO BID 07/02/21 12/11/23 12/11/23 History metoprolol succinate 50 mg 50 mg PO DAILY 07/02/21 12/13/23 12/13/23 History tablet,extended release 24 hr omeprazole 20 mg capsule,delayed 20 mg PO BID 07/02/21 12/13/23 12/12/23 History release Lactobacillus combo no.23 14 1 cell PO DAILY 08/30/22 12/11/23 12/11/23 History billion cell capsule (Shamir Probiotic) hydrocortisone 1 % topical cream 1 applic topical TID PRN 10/11/22 12/13/23 12/12/23 Rx (Preparation H Hydrocortisone) hemorrhoids #28.35 grams amlodipine 2.5 mg tablet 2.5 mg PO DAILY 12/11/23 12/13/23 12/13/23 History aspirin 81 mg chewable tablet 81 mg PO DAILY 12/13/23 12/13/23 12/11/23 History Allergies Allergy/AdvReac Type Severity Reaction Status Date / Time No Known Allergies Allergy Verified 12/11/23 09:51 Current Medications Generic Name Dose Route Start Last Admin Trade Name Freq PRN Reason Stop Dose Admin Sodium Chloride 1,000 mls @ 30 mls/hr 12/13/23 11:15 12/13/23 11:54 Sodium Chloride 0.9% IV 12/14/23 11:14 30 mls/hr .Q24H MONSERRAT Administration [facility] Anesthesia Medical History (Updated 12/10/23 @ 20:05 by Chevy Miranda MD) Back pain with left-sided sciatica Lumbar spine painful on movement Vaginal vault prolapse after hysterectomy No pertinent past medical history neghx: dm, htn, thyroid, dvt/pe PCP: Janell Mendes Surgical History H/O of anterior colporrhaphy (~08/31/22) Anterior colporrhaphy augmented with allograft, single incision mid urethral sling, posterior colporrhaphy, cystoscopy performed by Dr. Miranda at [facility] for stage III vaginal vault prolapse. History of hysterectomy (~07/27/21) LAVH, BSO, anterior repair, cystoscopy performed for uterine prolapse and cystocele by Dr. Samuel at [facility] Hx of removal of cyst R wrist Hx of breast biopsy L breast History of back surgery (~2001) with madyson History of heart artery stent Family History Brother Heart disease Stroke Denies family history of Colon cancer Ovarian cancer Diabetes Hyperlipidemia Breast cancer Hypertension Uterine cancer Thyroid disease Social History Smoking and tobacco/nicotine status: never used tobacco/nicotine Data Anesthesia Cardiac Studies: No Data to Display
[2023-12-13 13:10] VITALS: BP 164/84; PULSE 68; RESP 14; TEMP 36.4; O2SAT 95
[2023-12-13 13:24] VITALS: BP 160/86; PULSE 67; RESP 16; O2SAT 95
--- NOTE | 2023-12-13 14:01 | ANE.PACU2 ---
Inpatient post-anesthesia follow up: Airway intact: Yes Vital signs: Temperature 97.5 F Pulse Rate 67 Respiratory Rate 16 Blood Pressure 160/86 Pulse Oximetry 95 Oxygen Delivery Me thod Room Air Oxygen Flow Rate Fraction of Inspir ed Oxygen Hydration adequate: Yes Nausea and vomiting: No Pain level: 1 Mental status: Baseline
== END 2023-12-13 14:01 | disposition home or self-care (01) ==
PROVIDERS: PCP Nurse Practitioner Family; Visit Provider Surgery
PROC: 0DJ08ZZ Inspection of Upper Intestinal Tract, Via Natural or Artificial Opening Endoscopic (ICD-10-PCS; CPT 43235; principal; 2023-12-13 12:00)
PROC: 0DJD8ZZ Inspection of Lower Intestinal Tract, Via Natural or Artificial Opening Endoscopic (ICD-10-PCS; CPT 45378; 2023-12-13 12:00)
DX: K92.1 Melena (principal); K21.9 Gastro-esophageal reflux disease without esophagitis; R19.7 Diarrhea, unspecified; R15.9 Full incontinence of feces; R11.0 Nausea; K29.50 Unspecified chronic gastritis without bleeding; D12.8 Benign neoplasm of rectum; K64.8 Other hemorrhoids; K57.30 Diverticulosis of large intestine without perforation or abscess without bleeding
CPT/HCPCS: 43239; 45385; 88305; 88342; J2704; J7030

== ENCOUNTER → 2024-01-08 14:24 | Outpatient (BNVA) | payer MEDICARE, OTHER, SELFPAY | PROVIDERS: PCP Nurse Practitioner Family; Visit Provider Surgery | DX: Z09 Encounter for follow-up examination after completed treatment for conditions other than malignant neoplasm (principal); Z91.018 Allergy to other foods; K21.9 Gastro-esophageal reflux disease without esophagitis; R10.9 Unspecified abdominal pain; K64.4 Residual hemorrhoidal skin tags | CPT/HCPCS: 99214 ==

== ENCOUNTER 2024-02-09 07:45 | Outpatient (CLI) | payer MEDICARE, OTHER, SELFPAY ==
--- NOTE | 2024-02-09 08:00 | NM_ITS ---
WS: [id number] NUCLEAR MEDICINE HIDA SCAN WITH GALLBLADDER EJECTION FRACTION HISTORY: abdominal pain COMPARISON: 05/31/2007, gallbladder ultrasound 11/17/2023 TECHNIQUE: The patient was intravenously injected with 8.1 mCi of TC99m Mebrofenin. Immediate imaging over the right upper quadrant was followed by 5 minute image and additional images for a total of 60 minutes. Normal uptake of radiotracer throughout the liver. Activity identified in the gallbladder at 30 minutes and well distended by 60 minutes. Activity in the proximal small bowel was seen by 20 minutes. Good washout of the radiotracer from the liver by 60 minutes. The patient then drank 8 ounces of Ensure Plus. Ejection fraction at 60 minutes was 86%. Normal GB ej ection fraction is 35-75%. Post fatty meal symptoms: None. NM/NM hepatobiliary w phar* [id number] IMPRESSION: 1. Normal HIDA scan. 2. Normal gallbladder ejection fraction.
== END 2024-02-09 07:46 | disposition home or self-care (01) ==
LOC: RAD 07:46
PROVIDERS: PCP Nurse Practitioner Family; Visit Provider Surgery
DX: R10.9 Unspecified abdominal pain (principal)
CPT/HCPCS: 78227; A9537

== ENCOUNTER → 2024-02-12 11:39 | Outpatient (BNVA) | payer MEDICARE, OTHER, SELFPAY | PROVIDERS: PCP Nurse Practitioner Family; Visit Provider Surgery | DX: K82.8 Other specified diseases of gallbladder | CPT/HCPCS: 99214 ==

== ENCOUNTER 2024-02-20 05:48 | Day surgery (SDC) | payer MEDICARE, OTHER, SELFPAY ==
[2024-02-20] VITALS (10 sets, daily range): BP systolic 92–167; BP diastolic 52–94; PULSE 48–64; RESP 12–18; TEMP 36.2–36.4; O2SAT 91–97
[2024-02-20] MEDS: sodium chloride 0.9% 1,000 ML 30 ML IV (06:20)
--- NOTE | 2024-02-20 06:24 | ANES.PREANE2 ---
Pre-Anesthetic Assessment Height/Weight: Height 1.6 m Weight 62.596 kg Temp Pulse Resp BP Pulse Ox O2 Del Method 97.3 F L 63 16 167/94 95 Room Air 02/20/24 06:05 02/20/24 06:05 02/20/24 06:05 02/20/24 06:05 02/20/24 06:05 02/20/24 06:05 Operation Date: 02/20/24 07:00 Proposed Procedures p Laparoscopic Cholecystectomy 06153, R10.9(Not Applicable) - Marcos Granger DO Familial anesthetic complications: none, but alpha gal Was Beta Marlena taken within 24 hours: Yes Was Clonidine taken within 24 hours: N/A Last intake: Intake Last Liquid Date 02/19/24 Last Liquid Time 16:00 Last Solid Date 02/19/24 Last Solid Time 16:00 Social No alcohol and No tobacco Exam alert, oriented x 3, clear to auscultation bilaterally and regular rate & rhythm Airway Mallampati: Class II Dentition: false CV/HEM Coronary Artery Disease (stent) and Hypertension GI Gastroesophageal Reflux Disease Anesthetic Plan ASA status: 3 Anesthesia: General Risk of > 500 ml blood loss (7ml/kg in children): No Medications/Allergies Home Medications Medication Instructions Recorded Confirmed Last Taken Type alprazolam 0.5 mg disintegrating 0.5 mg PO BEDTIME 07/02/21 02/19/24 2 Weeks Ago History tablet ~11/27/23 brimonidine 0.2 % eye drops 1 drp ophthalmic (eye) BID 07/02/21 02/19/24 02/19/24 History calcium carbonate (Calcium 600) 600 mg PO BID 07/02/21 02/19/24 02/19/24 History gemfibrozil 600 mg tablet 600 mg PO BID 07/02/21 02/19/24 02/19/24 History metoprolol succinate 50 mg 50 mg PO DAILY 07/02/21 02/20/24 02/20/24 History tablet,extended release 24 hr Lactobacillus combo no.23 14 1 cell PO DAILY 08/30/22 02/19/24 02/19/24 History billion cell capsule (Shamir Probiotic) amlodipine 2.5 mg tablet 2.5 mg PO DAILY 12/11/23 02/20/24 02/20/24 History aspirin 81 mg chewable tablet 81 mg PO DAILY 12/13/23 02/19/24 01/29/24 History omeprazole 20 mg capsule,delayed 20 mg PO BID 02/19/24 02/20/24 02/20/24 History release Allergies Allergy/AdvReac Type Severity Reaction Status Date / Time Alpha-Gal Allergy ADR-Abdominal Verified 02/19/24 13:22 ([id number]-Dxpmg-5,3-Gala Pain Current Medications Generic Name Dose Route Start Last Admin Trade Name Freq PRN Reason Stop Dose Admin Sodium Chloride 1,000 mls @ 30 mls/hr 02/20/24 06:00 02/20/24 06:20 Sodium Chloride 0.9% IV 02/21/24 05:59 30 mls/hr .Q24H MONSERRAT Administration PFS Anesthesia Medical History Back pain with left-sided sciatica Lumbar spine painful on movement Vaginal vault prolapse after hysterectomy No pertinent past medical history neghx: dm, htn, thyroid, dvt/pe PCP: Janell Mendes Surgical History H/O of anterior colporrhaphy (~08/31/22) Anterior colporrhaphy augmented with allograft, single incision mid urethral sling, posterior colporrhaphy, cystoscopy performed by Dr. Miranda at [facility] for stage III vaginal vault prolapse. History of hysterectomy (~07/27/21) LAVH, BSO, anterior repair, cystoscopy performed for uterine prolapse and cystocele by Dr. Samuel at [facility] Hx of removal of cyst R wrist Hx of breast biopsy L breast History of back surgery (~2001) with madyson History of heart artery stent Family History Brother Heart disease Stroke Denies family history of Colon cancer Ovarian cancer Diabetes Hyperlipidemia Breast cancer Hypertension Uterine cancer Thyroid disease Social History Smoking and tobacco/nicotine status: never used tobacco/nicotine Data Anesthesia Cardiac Studies: No Data to Display
--- NOTE | 2024-02-20 06:58 | W.PM.OPSUD ---
Surgery/Procedure H&P Update DATE OF PROCEDURE: February 20, 2024 DATE H&P PERFORMED: 02/12/24 H&P UPDATE INFORMATION: I have reviewed H&P completed within last 30 days, I have examined patient prior to procedure and No changes to prior documentation PLANNED PROCEDURE: Operation Date: 02/20/24 07:00 Proposed Procedures p Laparoscopic Cholecystectomy 77440, R10.9(Not Applicable) - Marcos Granger, DO
[2024-02-20] MEDS: ceFAZolin 2,000 mg SDV 2000 MG IVP (07:00)
[2024-02-20] MEDS: lidocaine-epi 2% PF 1:200,000 20 mL SDV XX (07:31)
[2024-02-20] MEDS: tranexamic acid 1,000 mg/10mL SDV 1000 MG IV (07:32)
--- NOTE | 2024-02-20 07:42 | P.OP_ITS ---
Operative Report Date of procedure: February 20, 2024 Surgeon: Marcos Granger DO Brief History: This is a very pleasant 83-year-old female presented my office for abdominal pain. HIDA scan showed an elevated ejection fraction. She was diagnosed with biliary dyskinesia. Laparoscopic cholecystectomy was indicated. The risks and benefits were explained and documented. Procedure: Preoperative diagnosis: Biliary dyskinesia Postoperative diagnosis: Same Procedure performed: Laparoscopic cholecystectomy Surgeon: Dr. Marcos Granger DO Estimated blood loss: 5 mL Specimens: Gallbladder to pathology Complications: None apparent Description of procedure: Patient was wheeled into the operative room and placed on the OR table in a supine position. Abdomen was inspected prepped and draped in usual sterile fashion. Time-out was performed and all present were in agreement. A 15 blade scalp was used to make a stab incision in the left upper quadrant and intra- abdominal insufflation was achieved using a Veress needle. After localizing the tissue incisions were made and a 5 millimeter trocar was placed into the umbilicus as well as 2 in the right upper quadrant. A 12 millimeter trocar was placed in the epigastrium. Gallbladder was grasped and elevated. The triangle of Calot was carefully dissected using blunt dissection and electrocautery until the triangle of Calot clearly identified. The cystic duct was clipped proximally and double clipped distally. The duct was then ligated proximally. The cystic artery was doubly clipped and ligated. The gallbladder was then removed from the liver bed using electrocautery. The gallbladder was removed from the abdomen using an Endo-Catch bag through the epigastric incision. The liver bed was inspected and no bleeding was seen. The abdomen was irrigated and suctioned. All ports removed. Skin was washed and dried. Incisions were closed with 4-0 Monocryl in a subcuticular interrupted fashion. Skin glue was applied. Patient tolerated the procedure well.
--- NOTE | 2024-02-20 09:45 | ANE.PACU2 ---
Inpatient post-anesthesia follow up: Airway intact: Yes Vital signs: Temperature 97.2 F Pulse Rate 64 Respiratory Rate 18 Blood Pressure 159/79 Pulse Oximetry 93 Oxygen Delivery Me thod Room Air Oxygen Flow Rate 6 Fraction of Inspir ed Oxygen Hydration adequate: Yes Nausea and vomiting: No Pain level: 1 Mental status: Baseline
== END 2024-02-20 09:45 | disposition home or self-care (01) ==
PROVIDERS: PCP Nurse Practitioner Family; Visit Provider Surgery
PROC: 0FT44ZZ Resection of Gallbladder, Percutaneous Endoscopic Approach (ICD-10-PCS; CPT 47562; principal; 2024-02-20 07:00)
DX: K80.10 Calculus of gallbladder with chronic cholecystitis without obstruction (principal); I25.10 Atherosclerotic heart disease of native coronary artery without angina pectoris; Z95.5 Presence of coronary angioplasty implant and graft; I10 Essential (primary) hypertension; K21.9 Gastro-esophageal reflux disease without esophagitis; Z79.82 Long term (current) use of aspirin
CPT/HCPCS: 47562; 88304; J0690; J1200; J2371; J2704; J3010; J7030

== ENCOUNTER → 2024-03-04 10:10 | Outpatient (BNVA) | payer MEDICARE, OTHER, SELFPAY | PROVIDERS: PCP Nurse Practitioner Family; Visit Provider Surgery | DX: Z91.014 Allergy to mammalian meats (principal); Z90.49 Acquired absence of other specified parts of digestive tract | CPT/HCPCS: 99214 ==

== ENCOUNTER 2024-10-14 14:39 | Outpatient (CLI) | payer MEDICARE, OTHER, SELFPAY ==
--- NOTE | 2024-10-14 15:00 | MM_ITS ---
WS: [id number] BILATERAL 3D TOMOSYNTHESIS DIGITAL DIAGNOSTIC MAMMOGRAPHY WITH CAD CLINICAL INFORMATION: ABNORMAL MAMMO HISTORY: 6-month follow-up COMPARISON: 2023 TECHNIQUE: Bilateral CC, MLO, and ML views. FINDINGS: Scattered fibroglandular densities bilaterally. Again seen are the loosely clustered Calcifications upper outer RIGHT breast some in a linear distribution. These appear slightly increased since 03/30/2023 but relatively stable since 11/09/2023. Some of these may be vascular. Recommend additional 6-month follow-up. No other significant changes. No suspicious focal mass, asymmetry, calcifications, or architectural distortion. No evidence of malignancy. MM/MM diag tomosynthesis [id number] IMPRESSION: DENSITY: There are scattered areas of fibroglandular density. BI-RADS: 3 - Probably Benign. FOLLOW UP: 6 Month Follow-up Recommend 6-month follow-up RIGHT breast diagnostic mammography with spot magni fication views of the calcifications.
== END 2024-10-14 14:40 | disposition home or self-care (01) ==
LOC: RAD 14:41
PROVIDERS: PCP Nurse Practitioner Family; Visit Provider Family Medicine
DX: R92.8 Other abnormal and inconclusive findings on diagnostic imaging of breast (principal)
CPT/HCPCS: 77062; G0279